=== PATIENT | female | born 1985 | race Two or more races ===

== ENCOUNTER 2021-01-04 20:11 | Emergency (ER) | payer MEDICAID ==
[2021-01-04] MEDS ORDERED: Ketorolac 15 MG/ML SDV IVPUSH ONE (20:56)
--- NOTE | 2021-01-04 20:59 | EDM.PDOC ---
ED HPI GENERAL MEDICAL PROBLEM - General Chief Complaint: Abdominal Pain Stated Complaint: LOWER BACK AND ABDOMEN PAIN Time Seen by Provider: 01/04/21 20:45 Source of Information: Reports: Patient History Limitations: Reports: No Limitations - History of Present Illness INITIAL COMMENTS - FREE TEXT/NARRATIVE: Patient is a 35-year-old female with a past medical history of obesity, kidney stones and recurrent UTIs presenting with a chief complaint of low back pain and pressure in her pelvic area. Patient reports 3 weeks ago she started having symptoms which she thought was consistent with a urinary tract infection. He reported dysuria and urinary frequency. She states she took her 's amoxicillin for 1 week. She states her urinary symptoms seem to improve but she slowly started to develop bladder pressure and low back discomfort. The pain is worse in the left side. Patient reports feeling significant increase in fatigue but denies any fevers, chills, nausea, vomiting, diarrhea. Patient denies any saddle paresthesias. No urinary incontinence. Symptoms do seem to worsen with climbing up and down stairs. Patient reports 3 months ago she was having issues with her low back and some radicular type symptoms that would shoot down the back of her left leg. She states she had x-rays performed but no further work-up or treatment. She states these x-rays did not show anything. - Related Data Allergies Allergy/AdvReac Type Severity Reaction Status Date / Time No Known Allergies Allergy Verified 01/04/21 20:43 Home Meds: Home Meds levoFLOXacin [Levaquin] 750 mg PO DAILY #5 tab 01/04/21 [Rx] Past Medical History - Past Health History Medical/Surgical History: Denies Medical/Surgical History Social & Family History - Tobacco Use Tobacco Use Status *Q: Never Tobacco User ED ROS GENERAL - Review of Systems Review Of Systems: See Below Free Text/Narrative/Comment: In addition to that documented in the HPI above, the additional ROS was obtained: Constitutional: Denies fevers or chills Eyes: Denies vision changes ENMT: Denies sore throat CV: Denies chest pain Resp: Denies SOB GI: Denies vomiting or diarrhea : Denies painful urination MSK: Denies recent trauma Skin: Denies new rashes Neuro: Denies new numbness or tingling or weakness Endocrine: Denies unexpected weight loss Heme: Denies bleeding disorders ED EXAM,LOWER BACK PAIN/INJURY - Physical Exam Exam: See Below Text/Narrative:: I have reviewed the triage vital signs Const: Well nourished, well developed, appears stated age Eyes: Pupils Equal and reactive to light bilaterally, no conjunctival injection HENT: No signs of trauma or swelling, Neck supple without meningismus CV: Regular Rate Rhythm, Warm, well-perfused extremities RESP: Unlabored respiratory effort GI: soft, non-tender, non-distended, no masses MSK: No gross deformities appreciated Skin: Warm, dry. No rashes Neuro: Alert, hospital medical assistant II-XII grossly intact. Sensation and motor function of extremities grossly intact. Psych: Appropriate mood and affect. Course - Vital Signs Last Recorded V/S: Last Vital Signs Temp 36.6 C 01/04/21 20:39 Pulse 78 01/04/21 20:39 Resp 18 01/04/21 20:39 BP 138/93 H 01/04/21 20:39 Pulse Ox 97 01/04/21 20:39 - Orders/Labs/Meds Orders: Active Orders 24 hr Category Date Time Status CULTURE URINE [MREF] Stat Lab 01/04/21 20:43 Received Labs: Laboratory Tests 01/04/21 01/04/21 01/04/21 Range/Units 20:43 21:00 21:00 WBC 8.13 (3.98-10.04) K/mm3 RBC 4.91 (3.98-5.22) M/mm3 Hgb 14.7 (11.2-15.7) gm/dl Hct 44.2 (34.1-44.9) % MCV 90.0 (79.4-94.8) fl MCH 29.9 (25.6-32.2) pg MCHC 33.3 (32.2-35.5) g/dl RDW Std Deviation 44.6 (36.4-46.3) fL Plt Count 286 (182-369) K/mm3 MPV 8.2 L (9.4-12.3) fl Neut % (Auto) 62.3 (34.0-71.1) % Lymph % (Auto) 26.8 (19.3-51.7) % [place] % (Auto) 8.9 (4.7-12.5) % Eos % (Auto) 1.5 (0.7-5.8) Baso % (Auto) 0.4 (0.1-1.2) % Neut # (Auto) 5.07 (1.56-6.13) K/mm3 Lymph # (Auto) 2.18 (1.18-3.74) K/mm3 Kenton # (Auto) 0.72 H (0.24-0.36) K/mm3 Eos # (Auto) 0.12 (0.04-0.36) K/mm3 Baso # (Auto) 0.03 (0.01-0.08) K/mm3 Sodium 139 (136-145) mEq/L Potassium 3.6 (3.5-5.1) mEq/L Chloride 102 (98-107) mEq/L Carbon Dioxide 28 (21-32) mEq/L Anion Gap 12.6 (5-15) BUN 14 (7-18) mg/dL Creatinine 1.0 (0.55-1.02) mg/dL Est Cr Clr Drug Dosing TNP Estimated GFR (MDRD) > 60 (>60) mL/min BUN/Creatinine Ratio 14.0 (14-18) Glucose 90 (70-99) mg/dL Calcium 8.7 (8.5-10.1) mg/dL Total Bilirubin 0.4 (0.2-1.0) mg/dL AST 32 (15-37) U/L ALT 42 (14-59) U/L Alkaline Phosphatase 75 (46-116) U/L Total Protein 8.0 (6.4-8.2) g/dl Albumin 3.8 (3.4-5.0) g/dl Globulin 4.2 gm/dL Albumin/Globulin Ratio 0.9 L (1-2) Lipase 83 (73-393) U/L Urine Color Yellow (Yellow) Urine Appearance Slt cloudy H (Clear) Urine pH 7.0 (5.0-8.0) Ur Specific Yale > or = 1.030 (1.005-1.030) Urine Protein Trace H (Negative) Urine Glucose (UA) Negative (Negative) Urine Ketones Trace H (Negative) Urine Occult Blood Negative (Negative) Urine Nitrite Negative (Negative) Urine Bilirubin Negative (Negative) Urine Urobilinogen 1.0 (0.2-1.0) Ur Leukocyte Esterase 1+ H (Negative) Urine RBC 0-5 (0-5) /hpf Urine WBC 10-20 H (0-5) /hpf Ur Squamous Epith Cells 5-10 H (0-5) /hpf Urine Bacteria Many H (FEW) /hpf Urine Mucus Few (FEW) /hpf SARS-CoV-2 RNA (JOSH) (NEGATIVE) 01/04/21 Range/Units 21:00 WBC (3.98-10.04) K/mm3 RBC (3.98-5.22) M/mm3 Hgb (11.2-15.7) gm/dl Hct (34.1-44.9) % MCV (79.4-94.8) fl MCH (25.6-32.2) pg MCHC (32.2-35.5) g/dl RDW Std Deviation (36.4-46.3) fL Plt Count (182-369) K/mm3 MPV (9.4-12.3) fl Neut % (Auto) (34.0-71.1) % Lymph % (Auto) (19.3-51.7) % [place] % (Auto) (4.7-12.5) % Eos % (Auto) (0.7-5.8) Baso % (Auto) (0.1-1.2) % Neut # (Auto) (1.56-6.13) K/mm3 Lymph # (Auto) (1.18-3.74) K/mm3 [place] # (Auto) (0.24-0.36) K/mm3 Eos # (Auto) (0.04-0.36) K/mm3 Baso # (Auto) (0.01-0.08) K/mm3 Sodium (136-145) mEq/L Potassium (3.5-5.1) mEq/L Chloride (98-107) mEq/L Carbon Dioxide (21-32) mEq/L Anion Gap (5-15) BUN (7-18) mg/dL Creatinine (0.55-1.02) mg/dL Est Cr Clr Drug Dosing Estimated GFR (MDRD) (>60) mL/min BUN/Creatinine Ratio (14-18) Glucose (70-99) mg/dL Calcium (8.5-10.1) mg/dL Total Bilirubin (0.2-1.0) mg/dL AST (15-37) U/L ALT (14-59) U/L Alkaline Phosphatase (46-116) U/L Total Protein (6.4-8.2) g/dl Albumin (3.4-5.0) g/dl Globulin gm/dL Albumin/Globulin Ratio (1-2) Lipase (73-393) U/L Urine Color (Yellow) Urine Appearance (Clear) Urine pH (5.0-8.0) Ur Specific Yale (1.005-1.030) Urine Protein (Negative) Urine Glucose (UA) (Negative) Urine Ketones (Negative) Urine Occult Blood (Negative) Urine Nitrite (Negative) Urine Bilirubin (Negative) Urine Urobilinogen (0.2-1.0) Ur Leukocyte Esterase (Negative) Urine RBC (0-5) /hpf Urine WBC (0-5) /hpf Ur Squamous Epith Cells (0-5) /hpf Urine Bacteria (FEW) /hpf Urine Mucus (FEW) /hpf SARS-CoV-2 RNA (JOSH) Negative (NEGATIVE) Meds: Medications Discontinued Medications Generic Name Dose Route Start Last Admin Trade Name Kayley PRN Reason Stop Dose Admin Ketorolac Tromethamine 15 mg 01/04/21 20:56 01/04/21 21:11 Ketorolac 15 Mg/Ml Sdv IVPUSH 01/04/21 20:57 15 mg ONETIME ONE Administration Levofloxacin 750 mg 01/04/21 22:22 Levofloxacin 750 Mg Tab PO 01/04/21 22:23 ONETIME ONE Departure - Departure Time of Disposition: 22:22 Disposition: Home, Self-Care 01 Clinical Impression: UTI (urinary tract infection) - Discharge Information Prescriptions: levoFLOXacin [Levaquin] 750 mg PO DAILY #5 tab Instructions: Urinary Tract Infection, Adult Referrals: PCP,Not In Area [Primary Care Provider] - Forms: ED Department Discharge Additional Instructions: Take antibiotics as directed. Return to the emergency room for worsening of symptoms or any other major concerns. Please follow-up with primary care in the next several days to reevaluate your back pain. Use Tylenol and/or ibuprofen every 6-8 hours as needed for pain. Sepsis Event Note (ED) - Evaluation Sepsis Screening Result: No Definite Risk - Focused Exam Vital Signs: Vital Signs Temp Pulse Resp BP Pulse Ox 01/04/21 20:39 36.6 C 78 18 138/93 H 97 - My Orders Last 24 Hours: My Active Orders 01/04/21 20:43 CULTURE URINE [MREF] Stat - Assessment/Plan Last 24 Hours: My Active Orders 01/04/21 20:43 CULTURE URINE [MREF] Stat Assessment:: Patient is 35-year-old female presenting to the emergency room with a chief complaint of suprapubic discomfort and low back pain. Patient evaluated in the emergency room. Vital signs are stable. No evidence of significant abnormalities there. Exam was unremarkable as well. Differential diagnosis considered for this patient include UTI, pyelonephritis, cauda equina syndrome, lumbar strain with radiculopathy. Laboratory studies reviewed demonstrates evidence of UTI. No evidence of pyelonephritis based on her labs or exam. At this point, no indication for emergent imaging. Patient will be started on Levaquin for her UTI symptoms since she was just on amoxicillin. Will recommend outpatient follow-up for her back in the next several days. Return precautions discussed as usual. Patient agrees with plan of care.
[2021-01-04] MEDS ORDERED: Levofloxacin 750 MG Tab PO ONE (22:22)
== END 2021-01-04 23:10 | disposition home or self-care (01) ==
LOC: JD.ED 20:11
DX: N39.0 Urinary tract infection, site not specified (principal); Z20.822 Contact with and (suspected) exposure to COVID-19
CPT/HCPCS: 36415; 80053; 81001; 83690; 85025; 87086; 87635; 96374; 99283; A9270; J1885; 87088; 87186; U0002